=== PATIENT | female | born 1980 ===

== ENCOUNTER 2016-09-12 15:37 | Emergency (ER) | payer BC ==
[2016-09-12] MEDS ORDERED: Sodium Chloride 0.9% 10 ML Syringe FLUSH PRN ×2 (16:05→17:25)
[2016-09-12] MEDS ORDERED: Ondansetron 4 MG/2 ML SDV IVPUSH ONE (16:05)
[2016-09-12] MEDS ORDERED: HYDROmorphone 0.5 MG/0.5 ML Syringe IVPUSH ONE (16:07)
--- NOTE | 2016-09-12 16:28 | EDM.PDOC ---
ED HPI GI/ABDOMINAL - General Chief Complaint: Abdominal Pain Stated Complaint: ABDOMINAL PN Time Seen by Provider: 09/12/16 16:04 Source of Information: Reports: Patient History Limitations: Reports: No limitations - History of Present Illness INITIAL COMMENTS - FREE TEXT/NARRATIVE: Patient presents for evaluation and treatment of lower abdominal pain. Patient reports the pain began suddenly around 1 PM. Reports is located in the lower abdomen. She reports associated symptoms of nausea and 2 episodes of vomiting. She denies any dysuria, hematuria, change in urine odor or color, diarrhea, constipation, melena or hematochezia. She states that she has been eating ok. She is currently on a low sugar, low carb diet. She's been drinking plenty of fluids. She reports she has not taken any medications prior to arrival in the ER. Last bowel movement was yesterday. Patient has an IUD in place. She states that she spots but this is very irregular. Quality: Reports: stabbing Severity: severe - Related Data Allergies/ADRs: Allergies Allergy/AdvReac Type Severity Reaction Status Date / Time No Known Allergies Allergy Verified 04/29/15 05:05 Home Meds: Home Meds Magnesium Citrate 296 ml PO ASDIRECTED #1 solution 09/12/16 [Rx] Past Medical History - Past Health History Medical/Surgical History: Denies Medical/Surgical History Other OB/BYN History: HX of HPV; LEEP in 2001 - Past Surgical History Other Musculoskeletal Surgeries/Procedures:: Left Should Surgery 2003 Social & Family History - Tobacco Use Smoking Status *Q: Never Smoker Second Hand Smoke Exposure: No - Alcohol Use Days Per Week of Alcohol Use: 0 - Recreational Drug Use Recreational Drug Use: No ED ROS GENERAL - Review of Systems Review Of Systems: See Below Constitutional: Denies: fever, chills, decreased appetite GI/Abdominal: Reports: Abdominal pain, Nausea, Vomiting. Denies: Constipation, Diarrhea, Hematochezia, Melena : Denies: dysuria, hematuria ED EXAM, GI/ABD - Physical Exam Exam: See Below Exam Limited By: No limitations General Appearance: alert, WD/WN, no apparent distress Respiratory/Chest: no respiratory distress, lungs clear, normal breath sounds Cardiovascular: normal peripheral pulses, regular rate, rhythm, no murmur GI/Abdominal: normal bowel sounds, soft, tenderness (lower abdomen left > right) . No: rebound, McBurney's sign, psoas sign, obturator sign Neurological: alert, oriented, normal cognition Psychiatric: normal affect, normal mood Skin Exam: Warm, Dry, Normal color Course - Vital Signs Last Recorded V/S: Last Vital Signs Temp 36.8 C 09/12/16 15:52 Pulse 62 09/12/16 19:05 Resp 16 09/12/16 19:05 BP 100/67 09/12/16 19:05 Pulse Ox 100 09/12/16 19:05 - Orders/Labs/Meds Orders: Active Orders 24 hr Category Date Time Status Peripheral IV Care [RC] . DIRECTED Care 09/12/16 16:06 Active Peripheral IV Insertion Adult [OM.PC] Routine Oth 09/12/16 16:05 Ordered Labs: Laboratory Tests 09/12/16 09/12/16 09/12/16 Range/Units 16:19 16:35 16:35 WBC 7.20 (3.98-10.04) K/mm3 RBC 4.77 (3.98-5.22) M/mm3 Hgb 13.9 (11.2-15.7) gm/L Hct 40.6 (34.1-44.9) % MCV 85.1 (79.4-94.8) fl MCH 29.1 (25.6-32.2) pg MCHC 34.2 (32.2-35.5) g/dl RDW Std Deviation 44.2 (36.4-46.3) fL Plt Count 185 (182-369) K/mm3 MPV 10.1 (9.4-12.3) fl Neutrophils % (Manual) 65 H (40-60) % Band Neutrophils % 4 (0-10) % Lymphocytes % (Manual) 26 (20-40) % Atypical Lymphs % 0 % Monocytes % (Manual) 4 (2-10) % Eosinophils % (Manual) 1 (0.7-5.8) % Basophils % (Manual) 0 L (0.1-1.2) Platelet Estimate Adequate Anisocytosis 1+ slight RBC Morph Comment Not Reportable Sodium 138 (136-145) mEq/L Potassium 3.9 (3.5-5.1) mEq/L Chloride 103 (98-107) mEq/L Carbon Dioxide 27 (21-32) mEq/L Anion Gap 11.9 (5-15) BUN 14 (7-18) mg/dL Creatinine 1.0 (0.55-1.02) mg/dL Est Cr Clr Drug Dosing 82.84 mL/min Estimated GFR (MDRD) > 60 (>60) mL/min BUN/Creatinine Ratio 14.0 (14-18) Glucose 107 H (74-106) mg/dL Calcium 9.1 (8.5-10.1) mg/dL Total Bilirubin 1.3 H (0.2-1.0) mg/dL AST 18 (15-37) U/L ALT 30 (14-59) U/L Alkaline Phosphatase 72 (46-116) U/L C-Reactive Protein < 0.2 (<1.0) mg/dL Total Protein 8.3 H (6.4-8.2) g/dl Albumin 4.4 (3.4-5.0) g/dl Globulin 3.9 gm/dL Albumin/Globulin Ratio 1.1 (1-2) HCG, Quant < 1.0 mIU/mL Urine Color Yellow (Yellow) Urine Appearance Slt cloudy H (Clear) Urine pH 6.5 (5.0-8.0) Ur Specific [place] 1.025 (1.005-1.030) Urine Protein Negative (Negative) Urine Glucose (UA) Negative (Negative) Urine Ketones Negative (Negative) Urine Occult Blood Negative (Negative) Urine Nitrite Negative (Negative) Urine Bilirubin Negative (Negative) Urine Urobilinogen 0.2 (0.2-1.0) Ur Leukocyte Esterase Negative (Negative) Urine RBC 0-5 (0-5) /hpf Urine WBC 5-10 H (0-5) /hpf Ur Squamous Epith Cells 20-30 H (0-5) /hpf Urine Bacteria Rare (FEW) /hpf Urine Mucus Not seen (FEW) /hpf Meds: Medications Discontinued Medications Generic Name Dose Route Start Last Admin Trade Name Freq PRN Reason Stop Dose Admin Diatrizoate Meglum/Diatrizoate Sod 90 ml 09/12/16 17:25 09/12/16 17:47 Gastrografin 37% PO 09/12/16 17:26 90 ml ONETIME ONE Administration Hydromorphone HCl 0.5 mg 09/12/16 16:07 09/12/16 16:48 Dilaudid IVPUSH 09/12/16 16:08 0.5 mg ONETIME ONE Administration Iopamidol 125 ml 09/12/16 17:25 09/12/16 17:49 Isovue-300 (61%) IVPUSH 09/12/16 17:26 125 ml ONETIME ONE Administration Ondansetron HCl 4 mg 09/12/16 16:05 09/12/16 16:42 Zofran IVPUSH 09/12/16 16:06 4 mg ONETIME ONE Administration Sodium Chloride 10 ml 09/12/16 16:05 09/12/16 16:44 Saline Flush FLUSH 10 ml ASDIRECTED PRN Administration Keep Vein Open Sodium Chloride 10 ml 09/12/16 17:25 09/12/16 17:49 Saline Flush FLUSH 10 ml ONETIME PRN Administration IV FLUSH - Radiology Interpretation Free Text/Narrative:: CT of the abdomen and pelvis with contrast impression per Dr. Sparks 1. Increased stool throughout colon 2. Other incidental findings. Nothing acute is appreciated on CT. CT Results Date: 09/12/16 - Re-Assessments/Exams Free Text/Narrative Re-Assessment/Exam: 09/12/16 18:54 Labs returned. White blood cell count is 7.2, hgb is 13.9 and platelets are 185. HCG is negative. CRP is within normal limits at less than 0.2. Sodium is 138, potassium 3.9 chloride is 103. Anion gap is 11.9. I reviewed the lab and CT results with the patient. I originally ordered 0.5 mg of Dilaudid. Patient was nervous about taking this amount and opted instead for 0.25. She reports it does significantly decrease her pain. she will likely have some bowel movements from the contrast however I will prescribe some magnesium citrate for bowel cleanout. drink lots of fluids. Will discharge her home at this time. Discharge instructions. Departure - Departure Time of Disposition: 18:54 Disposition: Home, Self-Care 01 Condition: fair Clinical Impression: Constipation Prescriptions: Magnesium Citrate 296 ml PO ASDIRECTED #1 solution Instructions: Constipation, Adult Referrals: PCP,None [Primary Care Provider] - Forms: ED Department Discharge Additional Instructions: Tomorrow morning drink a bottle of magnesium citrate over one to 2 hours. Recommend MiraLax one capful daily or every other day for normal bowel maintenance. You should have 1-3 bowel movements every one to 3 days. Follow up at your primary care provider as needed. Drink plenty of fluids. Please return to the ER should your symptoms change or worsen. - My Orders Last 24 Hours: My Active Orders 09/12/16 16:05 Peripheral IV Insertion Adult [OM.PC] Routine 09/12/16 16:06 Peripheral IV Care [RC] . DIRECTED - Assessment/Plan Last 24 Hours: My Active Orders 09/12/16 16:05 Peripheral IV Insertion Adult [OM.PC] Routine 09/12/16 16:06 Peripheral IV Care [RC] . DIRECTED
[2016-09-12] MEDS ORDERED: Diatrizoate Meglumine/Diatrizoate Sodium 37% 120 ML Bottle PO ONE (17:25)
[2016-09-12] MEDS ORDERED: Iopamidol 612 MG/ML 150 ML Bottle IVPUSH ONE (17:25)
--- NOTE | 2016-09-12 18:27 | CT ---
CT abdomen and pelvis Technique: Multiple axial sections were obtained from above the dome of the diaphragm inferiorly through the pubic symphysis. Delayed images were also obtained through the bladder. Intravenous and oral contrast was utilized. Comparison: No previous abdominal imaging. Findings: Visualized lung bases are clear. Liver shows no focal parenchymal abnormality. Spleen appears within normal limits. Adrenal glands show no nodule. Pancreas is unremarkable. Kidneys show symmetric contrast enhancement without hydronephrosis or mass. Aorta shows no aneurysmal dilatation. No retroperitoneal adenopathy or mesenteric abnormalities are seen. Appendix not visualized with certainty. Increased stool is noted throughout the colon. IUD is present within the endometrial cavity of the uterus. No pelvic mass or adenopathy is seen. Minimal free fluid is seen which is felt to be physiologic. Delayed images shows contrast within the distal ureters and within the bladder. Bone window settings were reviewed which appear within normal limits for the patient's age. Impression: 1. Increased stool throughout colon. 2. Other incidental findings. Nothing acute is appreciated on CT study of the abdomen and pelvis. Diagnostic code #2
[2016-09-12 19:10] VITALS: BP 100/67
== END 2016-09-12 19:10 | disposition home or self-care (01) ==
LOC: JD.ED 15:37
DX: K59.00 Constipation, unspecified (principal); Z79.899 Other long term (current) drug therapy
CPT/HCPCS: 36415; 74177; 80053; 81001; 84702; 85025; 86140; 96374; 96375; 99284; J1170; J2405; J7050; Q9963; Q9967